=== PATIENT | female | born 1935 | race Caucasian/White ===

== ENCOUNTER 2016-05-24 21:37 | Emergency (ER) | payer OTHER ==
[2016-05-24 21:44] VITALS: RESP 18
--- NOTE | 2016-05-24 22:30 | ED ---
General Adult HPI - General Chief complaint: Fall Stated complaint: Fall/Head Injury Source: patient, family, RN notes reviewed Mode of arrival: ambulatory Limitations: no limitations - History of Present Illness Initial comments: Chief complaint and history of present illness a 80-year-old female reports she stumbled while going into a local hotel falling and spraining her left thumb. And bumping the area around her left eye. There is no loss of consciousness, no nausea no vomiting no seizure activity. Patient denying any significant discomfort to the eye. - Related Data Home Medications Medication Instructions Recorded Confirmed Bendroflumethiazide 2.5 mg PO QAM 05/24/16 05/24/16 Carbimazole 5 mg PO DAILY 05/24/16 05/24/16 Lisinopril [Prinivil] 5 mg PO DAILY 05/24/16 05/24/16 Optive 0.5% Eye Drops 1 drop BOTH EYES QID 05/24/16 05/24/16 Propranolol HCl 80 mg PO DAILY 05/24/16 05/24/16 Simvastatin [Zocor] 20 mg PO HS 05/24/16 05/24/16 Previous Rx's Medication Instructions Recorded Ibuprofen [Motrin] 600 mg PO Q6HR PRN #20 tab 05/24/16 Allergies Allergy/AdvReac Type Severity Reaction Status Date / Time No Known Allergies Allergy Verified 05/24/16 22:54 Review of Systems ROS Statement: Those systems with pertinent positive or pertinent negative responses have been documented in the HPI. Review of systems. Patient's denying headache or pain around the left eye where she has bruising. Denying any jaw pain or chipped teeth. No neck pain. Denies chest pain she has discomfort from the left thumb area but demonstrates full range of motion. Patient denying any discomfort to her wrist , elbows, shoulders or knees. Past medical problems significant for hypertension and hypothyroidism. The patient's surgeries include tonsillectomy and ovarian cyst. No known ALLERGIES. ROS Other: All systems not noted in ROS Statement are negative. Past Medical History Past Medical History: Hypertension, Thyroid Disorder History of Any Multi-Drug Resistant Organisms: None Reported Past Surgical History: Tonsillectomy Additional Past Surgical History / Comment(s): ovarian cyst Past Psychological History: No Psychological Hx Reported Smoking Status: Former smoker Past Alcohol Use History: None Reported Past Drug Use History: None Reported General Exam - General Exam Comments Initial Comments: General: The patient is awake and alert, in no distress, and does not appear acutely ill. Patient has applied an ice pack to her left eye area. The patient had a slip and fall bumping her left eye area. Eye: Pupils are equal, round and reactive to light, extra-ocular movements are intact ; there is normal conjunctiva bilaterally. No signs of icterus. 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 She states she normally has double vision. It is no worse now than before. Ears, nose, mouth and throat: There are moist mucous membranes and no oral lesions. Neck: The neck is supple, there is no tenderness . Cardiovascular: There is a regular rate and rhythm. No murmur, rub or gallop is appreciated. Respiratory: Lungs are clear to auscultation, respirations are non-labored, breath sounds are equal. No wheezes, stridor, rales, or rhonchi. Gastrointestinal: No abdominal pain Back: No complaint of back pain. Able twist or bend forward without discomfort. Musculoskeletal: All joints were moved. She has discomfort at the base of the left thumb. But she demonstrates full range of motion. Able to oppose to her pinky.. Neurological: CN II-XII intact, There are no obvious motor or sensory deficits. Coordination appears grossly intact. Speech is normal. Cranial nerves intact no focal or lateralizing findings Skin: Skin is warm and dry and no rashes or lesions are noted. 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 No evidence of acute fracture, dislocation or bony erosion. Soft tissues, unremarkable. No radial take foreign bodies. Impression no acute bone or joint abnormalities. As read by Dr. Mcguire X-ray of the orbits done and reviewed by radiologist his findings include bony orbital structures appear intact bilaterally. No evidence of orbital fracture. Sinuses images imaged paranasal sinuses are clear. Soft tissues unremarkable. No radiopaque foreign body. Impression; no evidence of orbital fracture. As read by Dr. Mcguire The patient was advised to continue with ice packs to her eye and her hand. He suggested the patient take ibuprofen for discomfort. Keep elevated. Follow-up with family physician as needed. Disposition Clinical Impression: Fall, Contusion of left orbit, Sprain of left thumb Disposition: HOME SELF-CARE Condition: Stable Instructions: Facial Contusion (ED), Sprain (ED) Additional Instructions: Apply ice to the area around the eye. Use ibuprofen for pain. Prescriptions: Ibuprofen [Motrin] 600 mg PO Q6HR PRN #20 tab PRN Reason: Pain Time of Disposition: 23:36
[2016-05-24 22:54] VITALS: TEMP 97
--- NOTE | 2016-05-24 23:07 | XR ---
EXAM: XR Orbits-3 views CLINICAL HISTORY: Reason: Pain TECHNIQUE: Frontal, lateral and oblique views of the orbits. COMPARISON: No relevant prior studies available. FINDINGS: Bones/joints: Bony orbital structures appear intact bilaterally. No evidence of orbital fracture. Sinuses: Imaged paranasal sinuses are clear. Soft tissues: Unremarkable. No radiopaque foreign body. IMPRESSION: No evidence of orbital fracture.
--- NOTE | 2016-05-24 23:09 | XR ---
EXAM: XR Left Hand Complete, 3 or More Views. CLINICAL HISTORY: Reason: Pain TECHNIQUE: Frontal, lateral and oblique views of the left hand. COMPARISON: No relevant prior studies available. FINDINGS: Bones/joints: Moderate osteoarthritis involves the first carpal- metacarpal joint. No evidence of acute fracture, dislocation or bony erosion. Soft tissues: Unremarkable. No radiopaque foreign body. IMPRESSION: No acute bone or joint abnormalities.
[2016-05-24] MEDS ORDERED: cloNIDine HCL 0.1 MG TAB PO STA (23:36)
[2016-05-25 00:03] VITALS: PULSE 70
[2016-05-25 00:22] VITALS: BP 142/80
== END 2016-05-25 00:22 | disposition home or self-care (01) ==
LOC: EC 21:37
DX: S63.602A Unspecified sprain of left thumb, initial encounter (principal); S05.12XA Contusion of eyeball and orbital tissues, left eye, initial encounter; I10 Essential (primary) hypertension; E03.9 Hypothyroidism, unspecified; Z87.891 Personal history of nicotine dependence; Z79.899 Other long term (current) drug therapy; W10.9XXA Fall (on) (from) unspecified stairs and steps, initial encounter; Y92.59 Other trade areas as the place of occurrence of the external cause
CPT/HCPCS: 70200; 99284